=== PATIENT | female | born 1950 | race Caucasian/White ===

== ENCOUNTER 2019-06-16 17:16 | Emergency (ER) | payer MEDICARE, OTHER, SELFPAY ==
[~2019-06-16] VITALS: Ht 170.2 cm; Wt 114.5 kg
[2019-06-16] MEDS ORDERED: TRIM100T PEG (17:53)
[2019-06-16] MEDS ORDERED: METF-649 PO (17:53)
[2019-06-16] MEDS ORDERED: ATOR10TA9 PO (17:53)
[2019-06-16] MEDS ORDERED: TOLT4CAP12 PO (17:53)
--- NOTE | 2019-06-16 18:21 | NUR ---
PT HAS CO LOWER LEG SWELLING BILAT. DARK IN DISCOLORATION FROM PVD. PEDAL PULSE BILAT 2+. PT HAS CO SOB WITH ACTIVITY. DENIES CP, N/V. PT STATES SHE TRAVELED FROM [place] TO [place] AND WAS SEEN AT [facility], WAS TOLD TO COME TO ED TO RULE OUT DVT. PT NOT IN DISTRESS. RESP EVEN AND EQUAL
--- NOTE | 2019-06-16 18:42 | NUR ---
PT ELDON GOEMZ AT THIS TIME.
--- NOTE | 2019-06-16 18:42 | NUR ---
REPORT TO JOANNE
[2019-06-16 18:52] LABS: BASOPHILS # (AUTO) 0.02 x10^3/uL (0-0.1); BASOPHILS % (AUTO) 0 % (0-1); EOSINOPHILS # (AUTO) 0.16 x10^3/uL (0-0.4); EOSINOPHILS % (AUTO) 2 % (1-7); LYMPHOCYTES # (AUTO) 1.59 x10^3/uL (1-3.4); LYMPHOCYTES % (AUTO) 23 % (22-44); MD NO; MEAN CORPUSCULAR HEMOGLOBIN 31.7 pg (27.0-34.8); MEAN CORPUSCULAR HGB CONC 33.8 g/dL (32.4-35.8); MEAN CORPUSCULAR VOLUME 93.8 fL (80-100); MEAN PLATELET VOLUME 7.7 fL (7.4-10.4); MONOCYTES # (AUTO) 0.49 x10^3/uL (0.2-0.8); MONOCYTES % (AUTO) 7 % (2-9); NEUTROPHILS % (AUTO) 68 % (42-75); PLATELET COUNT 319 x10^3/uL (130-400); RED BLOOD COUNT 4.84 x10^6/uL (3.82-5.3); RED CELL DISTRIBUTION WIDTH 14.4 % (9.6-15.2)
[2019-06-16 18:59] LABS: ALBUMIN 2.9 g/dL (3.4-5.0); ANION GAP 5 mmol/L (5-15); CALCIUM 8.8 mg/dL (8.5-10.1); CHLORIDE 108 mmol/L (98-107); CREATININE 1.41 mg/dL (0.55-1.02)
[2019-06-16 20:29] VITALS: BP 151/74
== END 2019-06-16 20:34 | disposition home or self-care (01) ==
LOC: ED 19:34
DX: I87.2 Venous insufficiency (chronic) (peripheral) (principal); E88.09 Other disorders of plasma-protein metabolism, not elsewhere classified; R60.0 Localized edema; J44.9 Chronic obstructive pulmonary disease, unspecified; N18.9 Chronic kidney disease, unspecified
CPT/HCPCS: 36415; 71045; 80048; 82040; 83880; 85025; 93005; 93970; 99285